=== PATIENT | female | born 1990 | race American Indian/Alaskan Native ===

== ENCOUNTER 2016-06-02 22:54 | Emergency (ER) | payer SELFPAY ==
[2016-06-02 23:02] VITALS: BP 154/87
[2016-06-02 23:29] LABS: Basophils % (Auto) 0.3 % (0.0-1.8); Eosinophils % (Auto) 0.7 % (0.0-4.3); Hematocrit 42.5 % (30.3-42.9); Hemoglobin 13.7 gm/dl (10.1-14.3); Mean Corpuscular HGB Conc 32 % (30-34); Mean Corpuscular Volume 79 fl (79-97); Platelet Count 280 K/mm3 (140-440); Red Blood Count 5.37 M/mm3 (3.65-5.03); Red Cell Distribution Width 15.2 % (13.2-15.2)
[2016-06-02 23:30] LABS: Mean Corpuscular Hemoglobin 26 pg (28-32)
[2016-06-02 23:49] LABS: Anion Gap 21 mmol/L; BUN/Creatinine Ratio 11.25; Blood Urea Nitrogen 9 mg/dL (7-17); Calcium 8.9 mg/dL (8.4-10.2); Carbon Dioxide 20 mmol/L (22-30); Chloride 97.5 mmol/L (98-107); Glucose 94 mg/dL (65-100); Potassium 3.7 mmol/L (3.6-5.0); Sodium 135 mmol/L (137-145)
--- NOTE | 2016-06-03 18:43 | ED Elopement Review ---
ED Pt Elopement review - Results review Lab results: Laboratory Tests 06/02/16 06/02/16 23:18 23:18 WBC 11.0 RBC 5.37 H Hgb 13.7 Hct 42.5 MCV 79 MCH 26 L MCHC 32 RDW 15.2 Plt Count 280 Lymph % (Auto) 31.3 [place] % (Auto) 5.3 Eos % (Auto) 0.7 Baso % (Auto) 0.3 Lymph # 3.5 [place] # 0.6 Eos # 0.1 Baso # 0.0 Seg Neutrophils % 62.4 Seg Neutrophils # 6.9 Sodium 135 L Potassium 3.7 Chloride 97.5 L Carbon Dioxide 20 L Anion Gap 21 BUN 9 Creatinine 0.8 Estimated GFR > 60 BUN/Creatinine Ratio 11.25 Glucose 94 Calcium 8.9 - Call Back decision Pt Call Back Decision: Call pt to return to ED JUS (call back for abnormal vital signs)
== END 2016-06-03 00:20 | disposition left against medical advice (07) ==
LOC: ED 22:54
DX: F41.9 Anxiety disorder, unspecified (principal); Z53.21 Procedure and treatment not carried out due to patient leaving prior to being seen by health care provider
CPT/HCPCS: 36415; 80048; 85025